=== PATIENT | female | born 1995 | race Caucasian/White ===

== ENCOUNTER 2016-12-03 18:50 | Outpatient (CLI) | payer MEDICAID ==
[~2016-12-03 18:50] MED LIST: CLARITIN DPS10 MG PO; IRON325 M1 PO; MOTRIN-DPS800 MG PO; NORCO 5-325 TA1 EACH PO; PRENATAL VIT1 TAB PO; TYLENOL #3 DPS1 TAB PO
== END 2016-12-03 20:24 | disposition home or self-care (01) ==
LOC: 2LDRP 18:50 → BC 18:50
DX: O99.89 Other specified diseases and conditions complicating pregnancy, childbirth and the puerperium (principal); R10.9 Unspecified abdominal pain; Z3A.42 42 weeks gestation of pregnancy